=== PATIENT | female | born 1975 | race Caucasian/White ===

== ENCOUNTER 2021-01-02 15:50 | Outpatient (CLI) | payer BC, SELFPAY ==
--- NOTE | ~2021-01-02 | MM_ITS ---
EXAMINATION: MM screening charline BI w ana HISTORY: Screening TECHNIQUE: Craniocaudal and mediolateral oblique 3-D tomosynthesis images were obtained and synthetic 2-D images were generated. CAD analysis was submitted and interpreted. COMPARISON: No prior mammogram is available for comparison at this institution. BREAST PARENCHYMAL COMPOSITION: The breasts are heterogeneously dense, which may obscure small masses . FINDINGS: There is no evidence of suspicious mass, calcification, or architectural distortion to sugg est malignancy in either breast. There has been no suspicious interval change. IMPRESSION: 1. No mammographic evidence of malignancy. 2. Recommend routine screening mammography in one year. BI-RADS Category 1: Negative Reviewed, dictated and finalized at location A.
== END 2021-01-02 15:51 | disposition home or self-care (01) ==
LOC: ANHIMG 15:55
PROVIDERS: PCP Physician Assistant; Visit Provider Obstetrics & Gynecology
DX: Z12.31 Encounter for screening mammogram for malignant neoplasm of breast (principal)
CPT/HCPCS: 77063; 77067

== ENCOUNTER 2022-08-08 00:37 | Day surgery (SDC) | payer BC, SELFPAY ==
[2022-07-31 09:48] VITALS: BMI 23.6
[2022-08-08 06:48] VITALS: BP 104/65; PULSE 68; RESP 20; TEMP 36.4; O2SAT 100; BMI 23.6
[2022-08-08] MEDS: LACTATED RINGERS 1,000 ML 150 ML IV CONT (06:55)
--- NOTE | 2022-08-08 07:42 | WPDANESEPPF ---
Anes - Initial Pre Proc Eval Procedure: Operation Date: 08/08/22 08:00 Proposed Procedures p Screening Colonoscopy - Kirby Kaye MD Date/Time: 08/08/22 07:42 Surgeon: Kirby Kaye MD Pre Op Diagnosis: neoplasm screening Patient Data Age: 46 Gender: F Height: 1.68 m Weight: 66.5 kg Last Vital Signs Temp 97.6 F 08/08/22 06:48 Pulse 68 08/08/22 06:48 Resp 20 08/08/22 06:48 BP 104/65 08/08/22 06:48 Pulse Ox 100 08/08/22 06:48 O2 Del Method Room Air 08/08/22 06:48 Allergies Allergy/AdvReac Type Severity Reaction Status Date / Time No Known Allergies Allergy Unknown Verified 08/08/22 06:44 Home Medications Medication Instructions Recorded Confirmed Type dextroamphetamine-amphetamine ER 20 mg PO DAILY 07/31/22 07/31/22 History 20 mg 24hr capsule,extend release fluoxetine 10 mg capsule 10 mg PO DAILY 07/31/22 07/31/22 History rizatriptan 10 mg tablet 10 mg PO PRN PRN Migraine Headache 07/31/22 07/31/22 History Patient hx anesthesia problems: none Family hx anesthesia problems: none Results Review: All pre-operative results and documents have been reviewed as part of the pre-operative evaluation. [facility] Social History Social History Smoking status: Never smoker Alcohol intake: current Drinks per week: 2 Alcohol use details: Socially Substance use type: does not use Living arrangements: other Additional living arrangements comments: With Anes - Eval Final PreProcedure Day of Procedure 08/08/22 07:42 Patient weight: normal Heart: regular rate and rhythm Lungs: clear to auscultation Airway: Mallampati scale class II Neurological: alert and oriented Last oral intake: >/= 8 hours ASA classification: II Emergent: no Anesthetic plan: proceed Anesthesia type and monitoring: general GIVS and standard monitoring Results Review: All pre-operative results and documents have been reviewed as part of the pre-operative evaluation. Informed Consent: The patient's anesthetic plan and its attendant risks and benefits were discussed with the patient/family/POA. Questions were solicited and answers provided to the satisfaction of the patient/family/POA.
--- NOTE | 2022-08-08 07:51 | PM.HPGS ---
History of Present Illness History of Present Illness Consent: Risks, benefits, and alternatives have been discussed and questions answered. Patient agrees to proceed with procedure. Chief complaint: neoplasm screening Narrative: Lily Souza is a 46 year old female here for first screening colonoscopy Review of Systems Constitutional: Constitutional: Denies headache(s) and Denies weakness Eyes: Eyes: Denies blurry vision ENT: Reports Normal hearing present, Denies headache(s) and Denies neck pain Cardiovascular: Cardiovascular: Denies chest pain and Denies dyspnea Respiratory: Respiratory: Denies dyspnea Gastrointestinal: Gastrointestinal: Reports no additional gastrointestinal complaints Genitourinary: Genitourinary: Denies dysuria Musculoskeletal: Musculoskeletal: Denies neck pain Integumentary/Breasts: Skin/Breast: Denies dry skin Neurologic: Reports Normal hearing present, Denies headache(s) and Denies weakness Psychiatric: Psychiatric: Denies anxiety Endocrine: Endocrine: Denies change in body appearance Hematologic/Lymphatic: Hematologic/Lymphatic: Denies easy bleeding Allergic/Immunologic: Allergic/Immunologic: Denies urticaria [facility] Past Medical History Medical History (Updated 08/08/22 @ 07:52 by Kirby Kaye MD) Colon cancer screening Social History Social History Smoking status: Never smoker Alcohol intake: current Drinks per week: 2 Alcohol use details: Socially Substance use type: does not use Living arrangements: other Additional living arrangements comments: With Meds Home Medications and Allergies Home Medications Medication Instructions Recorded Confirmed Type dextroamphetamine-amphetamine ER 20 mg PO DAILY 07/31/22 07/31/22 History 20 mg 24hr capsule,extend release fluoxetine 10 mg capsule 10 mg PO DAILY 07/31/22 07/31/22 History rizatriptan 10 mg tablet 10 mg PO PRN PRN Migraine Headache 07/31/22 07/31/22 History Allergies Allergy/AdvReac Type Severity Reaction Status Date / Time No Known Allergies Allergy Unknown Verified 08/08/22 06:44 Vital Signs Vital Signs - 24 hr 08/08/22 06:48 Temperature 97.6 F Pulse Rate 68 Respiratory Rate 20 Blood Pressure 104/65 Pulse Oximetry 100 Oxygen Delivery Room Air Exam Const: General: comfortable and no acute distress HENMT: Face/Nose/Sinus: Normal nares present Eyes: General: appearance normal, both eyes and all related structures Neck: Neck: no JVD Resp: Auscultation: clear to auscultation bilaterally Cardio: Rate: regular rate Rhythm: regular rhythm GI: Inspection: non-distended GI Palp: Yes Soft to palpation Skin: General skin exam: normal color Neuro: General: gait normal Speech: normal speech Extrem: General: normal to inspection Psych: Mental Status: mental status grossly normal Assessment and Plan Assessment and plan (1) Colon cancer screening: Code(s): Z12.11 - Encounter for screening for malignant neoplasm of colon Status: Acute Assessment and Plan: colonoscopy
[2022-08-08 08:17] VITALS: BP 97/52; PULSE 66; RESP 17; O2SAT 100
[2022-08-08 08:27] VITALS: BP 125/71; PULSE 74; RESP 24; O2SAT 100
[2022-08-08 08:37] VITALS: BP 114/64; PULSE 70; RESP 21; O2SAT 100
== END 2022-08-08 08:39 | disposition home or self-care (01) ==
PROVIDERS: PCP Physician Assistant; Visit Provider Internal Medicine Gastroenterology
PROC: 0DJD8ZZ Inspection of Lower Intestinal Tract, Via Natural or Artificial Opening Endoscopic (ICD-10-PCS; CPT 45378; principal; 2022-08-08 08:00)
DX: Z12.11 Encounter for screening for malignant neoplasm of colon (principal); K64.8 Other hemorrhoids
CPT/HCPCS: 45378; J2704; J7120